=== PATIENT | female | born 1945 | race Caucasian/White ===

== ENCOUNTER → 2024-12-13 14:08 | Outpatient (CLI) | payer OTHER, SELFPAY ==
--- NOTE | 2024-12-13 14:16 | DI.RAD.S_ITS ---
PROCEDURE: XR LUMBAR SPINE 2-3V INDICATIONS: R HIP PAIN TECHNIQUE: 3 views of the lumbar spine were acquired. COMPARISON: None. FINDINGS: Bones: 5 [id number] vertebrae are present. There is trace retrolisthesis of L2 on L3, L3 on L4. Multilevel moderate to severe degenerative disc and foraminal narrowing most significant at L5-S1. Anterior osteophytes are most prominent at L3.. No vertebral body compression fractures. No suspicious bony lesions. Right hip arthroplasty. Hardware is intact without hardware fracture or periprosthetic lucency to suggest loosening. Alignment is stable. Moderate to severe left hip arthritic change. Soft tissues: Overlying bowel gas pattern is normal. No suspicious soft tissue calcifications. IMPRESSION: No acute bony abnormality. Degenerative changes most prominent L5-S1. Dictated by: Radha Rosas M.D. on 12/13/2024 at 20:43 Approved by: Radha Rosas M.D. on 12/13/2024 at 20:43
--- NOTE | 2024-12-13 14:16 | DI.RAD.S_ITS ---
PROCEDURE: XR HIP W PEL IF DONE RT 2V INDICATIONS: R HIP PAIN TECHNIQUE: AP pelvis with lateral view(s) of the right hip(s). COMPARISON: None. FINDINGS: Bones: No fractures or dislocations. Pelvic ring appears intact. No suspicious bony lesions. Right hip arthroplasty. Hardware is intact without hardware fracture or periprosthetic lucency to suggest loosening. Alignment is stable. Moderate to severe degenerative narrowing within the left hip. Periarticular osteophytes are present. No distinct erosions. Degenerative changes are present within the lower lumbar spine. Soft tissues: The visualized bowel gas pattern is normal. No suspicious soft tissue calcifications. IMPRESSION: Right hip arthroplasty. Moderate to severe left hip arthritic change. Dictated by: Radha Rosas M.D. on 12/13/2024 at 20:42 Approved by: Radha Rosas M.D. on 12/13/2024 at 20:42
== END ==
LOC: RAD 14:15
PROVIDERS: PCP Family Medicine; Referring Provider Family Medicine; Visit Provider Family Medicine
DX: M47.817 Spondylosis without myelopathy or radiculopathy, lumbosacral region (principal); M47.816 Spondylosis without myelopathy or radiculopathy, lumbar region; M25.551 Pain in right hip; M79.604 Pain in right leg; G89.29 Other chronic pain; Z96.641 Presence of right artificial hip joint
CPT/HCPCS: 72100; 73502